=== PATIENT | female | born 1960 | race African-American/Black ===

== ENCOUNTER 2020-02-01 10:57 | Outpatient (REF) | payer OTHER, SELFPAY | END 2020-02-01 10:58 | disposition home or self-care (01) | LOC: HO.LAB 10:57 | PROVIDERS: Visit Provider Internal Medicine | DX: Z20.828 Contact with and (suspected) exposure to other viral communicable diseases (principal) | CPT/HCPCS: C9803; U0003 ==

== ENCOUNTER 2023-03-26 07:57 | Outpatient (REF) | payer OTHER, SELFPAY | END 2023-03-26 07:58 | disposition home or self-care (01) | LOC: HO.MAMMO 07:57 | PROVIDERS: PCP Internal Medicine; Visit Provider Internal Medicine | DX: Z12.31 Encounter for screening mammogram for malignant neoplasm of breast (principal) | CPT/HCPCS: 77063; 77067 ==

== ENCOUNTER → 2023-03-26 08:15 | Outpatient (BNV) | payer OTHER, SELFPAY | PROVIDERS: PCP Internal Medicine; Visit Provider Radiology Diagnostic Radiology | DX: Z12.31 Encounter for screening mammogram for malignant neoplasm of breast (principal) | CPT/HCPCS: 77063; 77067 ==

== ENCOUNTER 2023-10-02 08:41 | Outpatient (REF) | payer OTHER, SELFPAY ==
[2023-10-02 13:53] LABS: MANUAL DIFF FLAG NO
[2023-10-02 14:03] LABS: Basophils Percent Auto 0.7 % (0-2); Hematocrit 39.6 % (37.0-47.0); Hemoglobin 13.4 g/dl (12.0-16.0); Imm Gran Abs Auto 0.01 X10*3/uL (0.00-0.03); Imm Gran Pct Auto 0.2 % (0.0-0.4); Lymphocytes Absolute Auto 1.7 X10*3/uL (1.2-4.9); Lymphocytes Percent Auto 41.4 % (20-40); Mean Corpuscular HGB Conc 33.8 g/dl (31.0-35.0); Mean Corpuscular Hemoglobin 28.4 pg (27.0-33.0); Mean Corpuscular Volume 83.9 fL (80.0-98.0); Mean Platelet Volume 10.4 fL (9.4-12.3); Monocytes Absolute Auto 0.3 X10*3/uL (0.1-1.2); Monocytes Percent Auto 8.5 % (2-11); Neutrophils Absolute Auto 1.9 x10*3/uL (2.0-8.3); Neutrophils Percent Auto 48.2 % (45-73); Platelet Count 160 X10*3/uL (160-400); Red Blood Count 4.72 X10*6/uL (4.20-5.50); Red Cell Distribution Width 13.1 % (11.0-16.0)
[2023-10-02 14:24] LABS: Alanine Aminotransferase 25 U/L (0-31); Albumin Level 4.6 g/dL (3.5-5.0); Alkaline Phosphatase 44 U/L (39-117); Anion Gap 14 (12-20); Aspartate Amino Transferase 26 U/L (5-31); Bilirubin Total 0.4 mg/dL (0.0-1.0); Blood Urea Nitrogen 14 mg/dL (9-16); Calcium 9.9 mg/dL (8.4-10.2); Carbon Dioxide 30 mmol/L (22-29); Chloride 101 mmol/L (96-108); Cholesterol 242 mg/dL (<200); Estimated Glomerular Filt Rate > 60; Glucose Random 84 mg/dL (60-115); HDL Cholesterol 50 mg/dL (>40); LDL Cholesterol Calculated 138 mg/dL (<100); Potassium 4.2 mmol/L (3.3-5.1); Sodium 141 mmol/L (135-145); Total Protein 7.1 g/dL (6.5-8.0); Triglycerides 273 mg/dL (<150)
[2023-10-02 14:47] LABS: TSH reflex Free T4 1.06 uIU/mL (0.32-4.0)
== END 2023-10-02 08:42 | disposition home or self-care (01) ==
LOC: HO.CHCLDS 08:41
PROVIDERS: Visit Provider Internal Medicine
DX: G43.109 Migraine with aura, not intractable, without status migrainosus (principal); N39.3 Stress incontinence (female) (male); E78.00 Pure hypercholesterolemia, unspecified
CPT/HCPCS: 36415; 80053; 80061; 84443; 85025

== ENCOUNTER 2024-01-19 16:22 | Outpatient (REF) | payer OTHER, SELFPAY ==
--- NOTE | ~2024-01-19 | MR_ITS ---
EXAMINATION: MR BRAIN WITHOUT CONTRAST CLINICAL INFORMATION: Headaches. COMPARISON: None available. TECHNIQUE: MRI of the brain was obtained using routine sequences without contrast. FINDINGS: No focal restricted diffusion is demonstrated to suggest acute or subacute cerebral ischemia. No evidence of acute or chronic hemorrhagic products on heme-sensitive imaging. Few scattered nonspecific periventricular and deep white matter T2 FLAIR hyperintensities. The ventricles are normal in morphology and size. No abnormal mass effect. No midline shift. Normal appearance of the pituitary gland. Normal positioning of the cerebellar tonsils. Normal arterial and venous vascular flow voids are present. Normal, homogeneous marrow signal. Moderate degenerative spondyloarthropathy of the visualized upper cervical spine. Mild mucosal thickening of the paranasal sinuses. No signal abnormalities within the mastoids. Bilateral lens extractions. MR/MR head/brain wo con IMPRESSION: 1. No acute intracranial abnormalities. 2. Minimal nonspecific white matter changes. Electronically signed by: Rafa Currie DO 02/10/2024 07:32 AM SAAD
== END 2024-01-19 16:23 | disposition home or self-care (01) ==
LOC: HO.MRI 16:22
PROVIDERS: PCP Internal Medicine; Visit Provider Internal Medicine
DX: G43.719 Chronic migraine without aura, intractable, without status migrainosus (principal)
CPT/HCPCS: 70551

== ENCOUNTER 2024-03-29 10:23 | Outpatient (REF) | payer OTHER, SELFPAY ==
--- OUTSIDE RECORDS SUMMARY | 2024-03-29 11:18 | XMS_ITS | Clinical Summary ---
Author Organization [employer] Address [address] [facility] 7t [place] [address] Care Team Providers Care Pilot Plant Operator Helper Name Role Phone Estee Wright MD Primary Care Provider [phone] Allergies No known active allergies Medications SUMAtriptan (Imitrex) 25 MG tabletIndication s:Migraine with aura and without status migrainosus, not intractable TAKE ONE TABLET BY MOUTH NEEDED FOR MIGRAINE. NO MORE THAN EIGHT TABLETS PER 24 HOURS 9 tablet 2 10/01/2023 Active atorvastatin (Lipitor) 20 MG tabletIndication s:Hypercholester olemia Take 1 tablet (20 mg) by mouth Once per day. 30 tablet 11 10/05/2023 10/05/19 25 Active topiramate (Topamax) 50 MG tablet Take 50 mg by mouth Once per day. 30 tablet 12/22/2023 Active Active Problems Problem Noted Date Diagnosed Date Migraine 10/01/2023 Positive PPD 10/01/2023 Hypercholesterolemia 08/22/2021 Encounters Date Type Department Care Team Description 02/15/2024 Telephone [facility] [address] [place] [address] Estee Wright MD Results from Last 3 Months Social History Tobacco Use Types Packs/Day Years Used Date Smoking Tobacco: Never Smokeless Tobacco: Never Tobacco Cessation:Counseling Given: Not Answered Alcohol Use Standard Drinks/Week Comments Not Currently 0 (1 standard drink = 0.6 oz pur e alcohol) Depression Answer Date Recorded Patient Health Questionnaire-9 Score 0 10/01/2023 Patient Health Questionnaire-9 Score 0 10/01/2023 Last PHQ-9: Questionnaire Data Not on file 0 10/01/2023 Housing Stability Answer Date Recorded What is your housing situation today? I have antione vizcarra 10/01/[address] you li ve. Do you have problems with any of the following? None of the above 10/01/2023 Food Insecurity Answer Date Recorded Within the past 12 months, y ou worried that your food would run out before you got money to buy more: Never True 10/01/2023 Within the past 12 months,th e food you bought just didn't last and you didn't have enough money to get more: Never True 03/2023 Transportation Answer Date Recorded In the past 12 months, has l ack of transportation kept you from medical appts, meetings, work or from getting things needed for daily living? No 10/01/2023 Utilities Answer Date Recorded In the past 12 months, has t he electric, gas, oil or water company threatened to shut off services in your home? No 10/01/2023 Depression Answer Date Recorded Patient Health Questionnaire-2 Score 0 10/01/2023 Internet Access Answer Date Recorded Internet Access Q1 Yes 11/02/2023 Internet Access Q2 Not on file 11/02/2023 Comments No Sex and Gender Information Value Date Recorded Sex Assigned at Female 12/30/2021 10:20 AM EDT Legal Sex Female 10:20 AM EDT Gender Identity Female 12/30/2021 10:20 AM EDT Sexual Orientation Choose not to disclose 2021 10:20 AM EDT Last Filed Vital Signs Vital Sign Reading Time Taken Comments Blood Pressure 142/90 12/22/2023 11:32 AM EDT Pulse 88 12/22/2023 11:32 AM EDT Temperature 37.1 ??C (98.8 ??F) 12/22/2023 11:32 AM E DT Respiratory Rate 20 12/22/2023 11:32 AM EDT Oxygen Saturation 98% 10/01/2023 1:43 PM EDT Inhaled Oxygen Concentration - - Weight 94.3 kg (208 lb) 12/22/2023 11:32 AM EDT Height 167.6 cm (5' 6 ) 12/22/2023 11:32 AM EDT Body Mass Index 33.57 12/22/2023 11:32 AM EDT Plan of Treatment Health Maintenance Due Date Last Done Comments CT Colonography 1959 FIT DNA/Cologuard 1959 FIT 1960 FOBT 1960 HIV Screening 1960 Sigmoidoscopy 1960 Alcohol/Substance Use Screening 1971 RSV Patients and Patients Aged 60 years or older (1 - Risk 60-74 years 1-dose series) 2019 COVID-19 Vaccine (4 - 2023-2 5 season) 2023 04/04/2021, 05/03/2020, 04/12/2020 Influenza Vaccine (#1) 2023 , 12/31/2018, 01/14/2014 Pap Smear 09/17/2024 09/17/2021 Depression Screening 09/30/2024 10/01/2023, 10/01/2023 SDOH Screening 09/30/2024 10/01/2023 Tobacco Screening 12/21/2024 12/22/2023 Mammogram 03/26/2025 03/26/2023 Cervical Cancer Screening 09/17/2026 HPV/Cotest 09/17/2026 09/17/2021 Colonoscopy 12/16/2027 12/15/2017 Colorectal Cancer Screening 12/16/2027 Lipid Panel 10/01/2028 10/02/2023, 08/21/2021, 02/13/2020 DTaP/Tdap/Td Vaccines (4 - T d or Tdap) 12/31/2028 12/31/2018, 10/20/2017, 09/17/2012 Zoster Vaccines Completed 04/20/2019, 02/15/2019 Hepatitis C Screening Completed 08/21/2021 HIB Vaccines Aged Out No longer eligi ble based on patient's age to complete this topic HPV Vaccines Aged Out No longer eligi ble based on patient's age to complete this topic Hepatitis A Vaccines Aged Out No long er eligible based on patient's age to complete this topic Hepatitis B Vaccines Aged Out No long er eligible based on patient's age to complete this topic IPV Vaccines Aged Out No longer eligi ble based on patient's age to complete this topic Meningococcal Vaccine Aged Out No regis rod eligible based on patient's age to complete this topic Pneumococcal Vaccine: Pediatrics (0 to 5 Years) and At-Risk Patients (6 to 64 Years) Aged Out No longer eligible b ased on patient's age to complete this topic RSV under 20 months Aged Out No longe r eligible based on patient's age to complete this topic Rotavirus Vaccines Aged Out No longer eligible based on patient's age to complete this topic Procedures Procedure Name Priority Date/Time Associated Diagnosis Comments MR BRAIN WO CONTRAST Routine 01/19/2024 4:45 PM EST Intractable chronic migraine without aura and without status migrainosus LIPID PANEL, STANDARD Routine 10/02/2023 8:43 AM EDT Hypercholesterolemi a BI MAMMOGRAM SCREENING TOMOSYNTHESIS BILATERAL Routine 03/26/2023 8:30 AM EST THINPREP IMAGING PAP AND HPV MRNA E6/E7 WITH REFLEX TO HPV 16,18/45 Routine 09/17/2021 10:12 AM EDT ZZZ HISTORICAL HEPATITIS C AB W/REFL TO HCV RNA, QN, PCR Routine 08/21/2021 8:46 AM EDT HM COLONOSCOPY Routine 12/15/2017 from Last 3 Months or Most Recently Relevant to Health Maintenance Results * MR Brain w/o Contrast (01/19/2024 4:45 PM EST) Anatomical Region Laterality Modality Brain Magnetic Resonan ce 01/19/2024 4:45 PM EST Narrative 02/10/2024 7:34 AM EST ? [facility] ?[address] ?[place] [address] ? Magnetic Resonance Report ? Signed ? Patient: Lopez,Kamryn P ?MR#: [id number] ?? [id number] ? : 1960 ?Acct:[id number] ? Age/Sex: 63 / F ?ADM Date: 11/19/24 ? Loc: HO.MRI ? Attending Dr: Anatoly Jim MD ? Ordering Physician: Anatoly Hidalgo MD ?? Date of Service: 01/19/24 ?? Procedure(s): MR head/brain wo con ?? Accession Number(s): [id number] ? cc: Estee Wright MD; Anatoly Hidalgo MD ? EXAMINATION: ?? MR BRAIN WITHOUT CONTRAST ? CLINICAL INFORMATION: ?? Headaches. ? COMPARISON: ?? None available. ? TECHNIQUE: ?? MRI of the brain was obtained using routine sequences without contrast. ? FINDINGS: ?? No focal restricted diffusion is demonstrated to suggest acute or ?? subacute cerebral ischemia. No evidence of acute or chronic hemorrhagic ?? products on heme-sensitive imaging. Few scattered nonspecific ?? periventricular and deep white matter T2 FLAIR hyperintensities. The ?? ventricles are normal in morphology and size. No abnormal mass effect. ?? No midline shift. ? Normal appearance of the pituitary gland. Normal positioning of the ?? cerebellar tonsils. Normal arterial and venous vascular flow voids are ?? present. ? Normal, homogeneous marrow signal. Moderate degenerative ?? spondyloarthropathy of the visualized upper cervical spine. Mild ?? mucosal thickening of the paranasal sinuses. No signal abnormalities ?? within the mastoids. Bilateral lens extractions. ? MR/MR head/brain wo con ?? IMPRESSION: ?? 1. ??No acute intracranial abnormalities. ?? 2. ??Minimal nonspecific white matter changes. ? Electronically signed by: ??Rafa Currie DO ??02/10/2024 07:32 AM EST RP ? Dictated By: ?Ephraim Currie DO ? Signed By: ?<Electronically signed by Ephraim Currie DO in OV> ? 02/10/24 0732 ? DD/ 1645 ? TD/TT: 01/19/24 1705 ? Roustabout Supervisor: WESTLEY ? Procedure Note Janki Aleman - 02/10/[address] [address] Magnetic Resonance Report Signed Patient: Kamryn Lopez PMR#: [id number] : 1960Acct:[id number] Age/Sex: 63 / FADM Date: 01/19/24 Loc: HO.MRI Attending Dr: Anatoly Jim MD Ordering Physician: Anatoly Hidalgo MD Date of Service: 01/19/24 Procedure(s): MR head/brain wo con Accession Number(s): [id number] cc: Estee Wright MD; Anatoly Hidalgo MD EXAMINATION: MR BRAIN WITHOUT CONTRAST CLINICAL INFORMATION: Headaches. COMPARISON: None available. TECHNIQUE: MRI of the brain was obtained using routine sequences without contrast. FINDINGS: No focal restricted diffusion is demonstrated to suggest acute or subacute cerebral ischemia. No evidence of acute or chronic hemorrhagic products on heme-sensitive imaging. Few scattered nonspecific periventricular and deep white matter T2 FLAIR hyperintensities. The ventricles are normal in morphology and size. No abnormal mass effect. No midline shift. Normal appearance of the pituitary gland. Normal positioning of the cerebellar tonsils. Normal arterial and venous vascular flow voids are present. Normal, homogeneous marrow signal. Moderate degenerative spondyloarthropathy of the visualized upper cervical spine. Mild mucosal thickening of the paranasal sinuses. No signal abnormalities within the mastoids. Bilateral lens extractions. MR/MR head/brain wo con IMPRESSION: 1. No acute intracranial abnormalities. 2. Minimal nonspecific white matter changes. Electronically signed by: Rafa Currie DO 02/10/2024 07:32 AM EST Dictated By: Ephraim Currie DO Signed By: <Electronically signed by Ephraim Currie DO in OV> 02/10/24 0732 DD/ 1645 TD/TT: 01/19/24 1705 Roustabout Supervisor: WESTLEY Anatoly Jim MD IM MRI PROCEDURES Edited Result - Final * (ABNORMAL) Lipid Panel, Standard (10/02/2023 8:43 AM EDT) Triglycerides 273(H) <150 mg/dL [facility] Comment:Desirable Triglyceri de: less than 150 mg/dLBorderline High Triglyceride 150-199 mg/dLHigh Triglyceride: 200-499 mg/dLVery High Triglyceride: greater than or equal to 5OO mg/dL Cholesterol 242(H) <200 mg/dL [facility] Comment:Desirable Cholestero l: less than 200 mg/dLBorderline High Cholesterol: 200-239 mg/dLHigh Cholesterol: greater than 239 mg/dL LDL Cholesterol Calculated 138(H) <100 mg/dL [facility] Comment:Desirable LDL: less than 100 mg/dLNear Optimal/Above Optimal LDL: 110- 129 mg/dLBorderline High LDL: 130-159 mg/dLHigh LDL: 160-189 mg/dLVery High LDL: greater than or equal to 190 mg/dL HDL Cholesterol 50 >40 mg/dL [facility] Comment:Desirable HDL: great er than 40 mg/dL Note: This HDL assay may give artificially low results in patients with liver disease. Blood Venous blood specimen / Unknown 10/02/2023 8:43 AM EDT 10/02/2023 1:49 PM EDT us Estee Wright MD LAB BLOOD ORDERABLES Final Result [facility] [address] [place] [address] [phone] * BI Mammogram Screening Tomosynthesis Bilateral (03/26/2023 8:30 AM EST) Anatomical Region Laterality Modality Breast Bilateral Mammography 03/26/2023 8:30 AM EST Narrative 04/07/2023 5:23 AM EST ? [facility] [place] ? [address] ?[place] [address] ? Mammography Report ? Signed ? Patient: Kamryn Lopez ?MR#: [id number] ?? [id number] ? : 1960 ?Acct:[id number] ? Age/Sex: 62 / F ?ADM Date: 01/25/24 ? Loc: HO.MAMMO ? Attending Dr: Estee Wright MD ? Ordering Physician: Estee Wright MD ?Results: 1 ?? Negative ? Date of Service: 03/26/23 ?Follow Up: 1 Year From Orig ?? inal Mammogram ? Procedure(s): MM tomosynthesis screening BI ?? Accession Number(s): [id number] ? cc: Estee Wright MD ? EXAMINATION: ?? MM SCREENING DIGITAL BREAST TOMOSYNTHESIS, BILATERAL ? CLINICAL INFORMATION: ? Screening. Asymptomatic. ? COMPARISON: ?? Mammography: This study is compared with prior exams dating back to ?? 2019. ? TECHNIQUE: ?? Digital breast tomosynthesis is performed in both the craniocaudal and ?? mediolateral oblique views along with computer-aided detection (CAD). ?? Synthesized 2D images are generated from the tomosynthesis. ? FINDINGS: ?? There are scattered areas of fibroglandular density (ACR BI-RADS breast ?? composition Category b). ? There are no significant masses, abnormal calcifications, or other ?? abnormalities. ? MM/MM tomosynthesis screening BI ?? IMPRESSION: ?? No mammographic evidence of malignancy. ? ASSESSMENT: ? BI-RADS BI-RADS 1 - Negative ? RECOMMENDATION: ?? Routine annual mammography screening. ? 1 year F/U ? This examination should not preclude the clinical evaluation of a ?? suspicious palpable abnormality. ? This patient's information was entered into a reminder system with a ?? target due date for their next mammogram. ? Dictated By: ?Amira Rios MD ? Signed By: ?<Electronically signed by Amira Rios MD in OV> ? 04/07/23519 ? DD/ 9 ? TD/TT: ? Roustabout Supervisor: ? Procedure Note Janki Aleman - 04/07/2023 [facility] [address] [place] [address] Dr. Nickerson, [place] [address] Mammography Report Signed Patient: Kamryn Lopez PMR#: [id number] : 1960Acct:[id number] Age/Sex: 62 / FADM Date: 03/26/23 Loc: HO.MAMMO Attending Dr: Estee Wright MD Ordering Physician: Estee Wright MDResults: 1 Negative Date of Service: 03/26/23Follow Up: 1 Year From Orig inal Mammogram Procedure(s): MM tomosynthesis screening BI Accession Number(s): [id number] cc: Estee Wright MD EXAMINATION: MM SCREENING DIGITAL BREAST TOMOSYNTHESIS, BILATERAL CLINICAL INFORMATION: Screening. Asymptomatic. COMPARISON: Mammography: This study is compared with prior exams dating back to 2019. TECHNIQUE: Digital breast tomosynthesis is performed in both the craniocaudal and mediolateral oblique views along with computer-aided detection (CAD). Synthesized 2D images are generated from the tomosynthesis. FINDINGS: There are scattered areas of fibroglandular density (ACR BI-RADS breast composition Category b). There are no significant masses, abnormal calcifications, or other abnormalities. MM/MM tomosynthesis screening BI IMPRESSION: No mammographic evidence of malignancy. ASSESSMENT: BI-RADS BI-RADS 1 - Negative RECOMMENDATION: Routine annual mammography screening. 1 year F/U This examination should not preclude the clinical evaluation of a suspicious palpable abnormality. This patient's information was entered into a reminder system with a target due date for their next mammogram. Dictated By: Amira Rios MD Signed By: <Electronically signed by Amira Rios MD in OV> 04/07/23 0520 DD/ 0830 TD/TT: Roustabout Supervisor: Estee Wright MD IMG BI PROCEDURES Edited Re sult - Final * THINPREP TIS PAP AND HPV mRNA E6/E7 WITH REFLEX TO HPV 16,18/45 (09/17/2021 10:12 AM EDT) Clinical Information: None given [facility] COMMENT SEE COMMENT [facility] Comment: EXPLANATORY NOTE: ? The Pap is a screening test for cervical cancer. It is ?? not a diagnostic test and is subject to false negative ?? and false positive results. It is most reliable when a ?? satisfactory sample, regularly obtained, is submitted ?? with relevant clinical findings and history, and when ?? the Pap result is evaluated along with historic and ?? current clinical information. ?? COMMENT: This Pap test has been evaluated with computer assisted technology. [facility] Cytotechnologis t: SEE COMMENT [facility] Comment: CXP, CT(ASCP) CT screening location: [address] ??[address] HPV nRNA E6/E7 Not Detected Not Detected [facility] Comment: Methodology: Observer Helper-Mediated Amplification This assay detects E6/E7 viral messenger RNA (mRNA) from 14 high-risk HPV types (16,18,31,33,35,39,45,51,52,56,58,59,66,68). ? Cervical sources are required for HPV testing. If a vaginal source from a patient who has had a total hysterectomy with removal of cervix was ?? submitted, please contact the testing laboratory for alternative testing options. ?? For additional information, please refer to http://education.[employer]/faq/QIY025v5 (This link if provided for information/ educational purposes only.) Interpretation/ Result: Negative for intraepithelial lesion or malignancy. [facility] LMP: MP@51 [facility] Prev. BX: NONE [facility]IVEN [facility] Prev. PAP: NONE [facility]IV[facility] SOURCE: None given [facility] Statement Of Adequacy: SEE COMMENT [facility] Comment: Satisfactory for evaluation. Endocervical/transformation zone component absent. 09/17/2021 10:1 2 AM EDT Melody Block CNM LAB PATHOLOGY ORDERABLES Final Result [facility] [address] [place] [address], * HEPATITIS C AB W/REFL TO HCV RNA, QN, PCR (08/21/2021 8:46 AM EDT) Pathologist [facility] HEPATITIS C ANTIBODY NON-REACT XIN NON-REACT XIN [facility] INDEX 0.02 <1.00 [facility] Comment: ?? HCV antibody was non-reactive. There is no laboratory ?? evidence of HCV infection. ?? In most cases, no further action is required. However, if recent HCV exposure is suspected, a test for HCV RNA (test code 77093) is suggested. ?? For additional information please refer to http://education.[employer]/faq/RHO93z7 (This link is being provided for informational/ educational purposes only.) ?? 08/21/2021 8:46 AM EDT Estee Wright MD HISTORICAL/NON ORDERABLE LA BS Final Result [facility] [place] [address], * Colonoscopy (12/15/2017) [facility] Colonoscopy Normal Normal Narrative Lisa Cervantes - 12/15/2017 Recommended 10 year follow up Historical Provider HEALTH MAINTENANCE Final Result from Last 3 Months or Most Recently Relevant to Health Maintenance Insurance [facility] Care Teams Pilot Plant Operator Helper Relationship Specialty Start Date End Date Estee Wright MD [address] [place] [address] PCP - General Internal Medicine 05/26/18
--- OUTSIDE RECORDS SUMMARY | 2024-03-29 11:18 | XMS_ITS | Encounter Summary ---
Author Organization [employer] Address [address] [place] [address] [place], [place] [address] Care Team Providers Care Extractor Filler Name Role Phone Estee Wright MD Primary Care Provider [phone] Reason for Referral * Imaging (Routine) - Closed Specialty Diagnoses / Procedures Referred By Dar cain Referred To Contact Radiology Diagnoses Encounter for screening mammogram for malignant neoplasm of breast Procedures BI Mammogram Screening Bilateral Estee Wright MD [address] [place] [address] Phone: tel: fax: [address] Phone: tel: fax: Referral ID Status Reason Start Date Expiration Date Visits Re quested Visits Authorized [id number] Closed 02/18/2023 02/18/2024 1 1 Reason for Visit * Reason Onset Date Comments Referral 02/17/2023 Encounter Details Date Type Department Care Team ([facility] st Contact Info) Description 02/17/2023 Telephone [facility] [address] [place], [place] [phone] Estee Wright MD [address] [place] [address] Referral Social History Tobacco Use Types Packs/Day Years Used Date Smoking Tobacco: Never Smokeless Tobacco: Never Alcohol Use Standard Drinks/Week Comments Not Currently 0 (1 standard drink = 0.6 oz pur e alcohol) Comments Unknown Sex and Gender Information Value Date Recorded Sex Assigned at Female 12/30/2021 10:20 AM EDT Legal Sex Female 10:20 AM EDT Gender Identity Female 12/30/2021 10:20 AM EDT Sexual Orientation Choose not to disclose 2021 10:20 AM EDT documented as of this encounter Miscellaneous Notes * Telephone Encounter - Fanny Roca RN - 02/18/2023 11:34 AM EST Returned call to pt regarding message below. [facility] [place] they do not [place] pt's insurance anymore. Pt requesting new order to a different location that does take pt insurance. Placed call to [facility] and confirmed they do take pt insurance. Please add order for routine mammo to be sent to [facility]. Thank you. * Telephone Encounter - Lorena Latham - 02/17/2023 12:55 PM EST Tc from pt requesting a referral for a Mammogram, pt states that she gets one done every year but current facility no longer takes her insurance and is requesting to be referred out somewhere that does. Please contact pt [phone] documented in this encounter Plan of Treatment Scheduled Orders Name Type Priority Associated Diagnoses Orde r Schedule BI Mammogram Screening Bilateral Imaging Routine Encounter for screening mammogram for malignant neoplasm of breast Expected: 02/18/2023, Expires: 04/21/2024 documented as of this encounter Visit Diagnoses Diagnosis Encounter for screening mammogram for malignant neoplasm of breast- Primary documented in this encounter Care Teams Extractor Filler Relationship Specialty Start Date End Date Estee Wright MD [address] [place] [address] PCP - General Internal Medicine 05/26/18 documented as of this encounter
--- OUTSIDE RECORDS SUMMARY | 2024-03-29 11:18 | XMS_ITS | Encounter Summary ---
Author Organization [employer] Address [address] [facility] [address] [place] [address] Care Team Providers Care Director Export Name Role Phone Estee Wright MD Primary Care Provider [phone] Encounter Details Date Type Department Care Team (Late st Contact Info) Description 08/18/2023 Orders Only [facility]S [address] [place] [address] Estee Wright MD [address] [place] [address] Migraine with aura and without status migrainosus, not intractable (Primary Dx) Social History Tobacco Use Types Packs/Day Years [...] AM EDT documented as of this encounter Plan of Treatment Not on file documented as of this encounter Visit Diagnoses Diagnosis Migraine with aura and without status migrainosus, not intractable- Primary documented in this encounter Care Teams Director Export Relationship Specialty Start Date End Date Estee Wright MD [address] [place] [address] PCP - General Internal Medicine 05/26/18 documented as of this encounter
--- OUTSIDE RECORDS SUMMARY | 2024-03-29 11:18 | XMS_ITS | Encounter Summary ---
Author Organization [employer] Address 75 [facility] 7 [place] [address] Care Team Providers Care Evp Managing Director Name Role Phone Estee Wright MD Primary Care Provider [phone] Encounter Details Date Type Department Care Team (Late st Contact Info) Description 01/01/2023 Abstract [facility] MEDICINE [address] [place] [address] Lisa Cervantes Social History Tobacco Use Types Packs/Day Years [...] on file documented as of this encounter Procedures Procedure Name Priority Date/Time Associated Diagnosis Comments COLONOSCOPY Routine 12/15/2017 documented in this encounter Results * Colonoscopy (12/15/2017) Colonoscopy Normal Normal Narrative Lisa Cervantes - 12/15/2017 Recommended 10 year follow up us Historical Provider HEALTH MAINTENANCE Final Result documented in this encounter Visit Diagnoses Not on filedocumented in this encounter Care Teams Evp Managing Director Relationship Specialty Start Date End Date Estee Wright MD [address] [place], [place] [id number] PCP - General Internal Medicine 05/26/18 documented as of this encounter
--- OUTSIDE RECORDS SUMMARY | 2024-03-29 11:18 | XMS_ITS | Encounter Summary ---
Author Organization [email or web address] Address [address] [place] [address] 7 [place] [address] Care Team Providers Care Distribution Operations Supervisor Name Role Phone Estee Wright MD Primary Care Provider [phone] Encounter Details Date Type Department Care Team (Latest Contact Info) Description 07/15/2018 Abstract [facility] CONVERSIONS Dental, Provider, DDS Social History Tobacco Use Types Packs/Day Years Used Date Smoking Tobacco: Never Assessed Comments Unknown Sex and Gender Information Value Date Recorded Sex Assigned at Female 12/30/2021 10:20 AM EDT Legal Sex Female 10:20 AM EDT Gender Identity Female 12/30/2021 10:20 AM EDT Sexual Orientation Choose not to disclose 2021 10:20 AM EDT documented as of this encounter Plan of Treatment Not on file documented as of this encounter Visit Diagnoses Not on filedocumented in this encounter Care Teams Distribution Operations Supervisor Relationship Specialty Start Date End Date Estee Wright MD [address] [place] [address] PCP - General Internal Medicine 05/26/18 documented as of this encounter
--- OUTSIDE RECORDS SUMMARY | 2024-03-29 11:18 | XMS_ITS | Encounter Summary ---
Author Organization [employer] Address 75 [facility] 7t [place] [address] Care Team Providers Care Trimmer Sawyer Name Role Phone Estee Wright MD Primary Care Provider [phone] Encounter Details Date Type Department Care Team (Latest Contact Info) Description 10/05/2023 Orders Only [facility] CHC MED & PEDS [address] [place] [address] Estee Wright MD [address] [place] [address] Hypercholesterolemia (Primary Dx) Social History Tobacco Use Types [...] Recorded Patient Health Questionnaire-2 Score 0 10/01/2023 Comments No Sex and Gender Information Value Date Recorded Sex Assigned at Female 12/30/2021 10:20 AM EDT Legal Sex Female 10:20 AM EDT Gender Identity Female 12/30/2021 10:20 AM EDT Sexual Orientation Choose not to disclose 2021 10:20 AM EDT documented as of this encounter Plan of Treatment Not on file documented as of this encounter Visit Diagnoses Diagnosis Hypercholesterolemia- Primary Pure hypercholesterolemia documented in this encounter Additional Health Concerns Assessment Noted Time PHQ-9 Depression Total Score: 0 10/01/19 24 10:07 AM EDT documented as of this encounter Care Teams Trimmer Sawyer Relationship Specialty Start Date End Date Estee Wright MD [address] [place] [id number] PCP - General Internal Medicine 05/26/18 documented as of this encounter
== END 2024-03-29 10:24 | disposition home or self-care (01) ==
LOC: HO.MAMMO 10:23
PROVIDERS: PCP Internal Medicine; Visit Provider Internal Medicine
DX: Z12.31 Encounter for screening mammogram for malignant neoplasm of breast (principal)
CPT/HCPCS: 77063; 77067

== ENCOUNTER → 2024-03-29 10:45 | Outpatient (BNV) | payer OTHER, SELFPAY | PROVIDERS: PCP Internal Medicine; Visit Provider Internal Medicine | DX: Z12.31 Encounter for screening mammogram for malignant neoplasm of breast (principal) | CPT/HCPCS: 77063; 77067 ==

== ENCOUNTER 2024-06-09 17:36 | Outpatient (REF) | payer SELFPAY ==
--- OUTSIDE RECORDS SUMMARY | 2024-06-09 18:16 | XMS_ITS | Encounter Summary ---
Author Organization [employer] Address 75 [facility] 7t [place] [address] Care Team Providers Care Panelbeater Name Role Phone Estee Wright MD Primary Care Provider [phone] Reason for Visit * Reason Comments Gynecologic Exam Encounter Details Date Type Department Care Team ([facility] st Contact Info) Description 06/09/2024 1:45 PM EDT Office Visit [facility] MED & PEDS [address] [place] [address] Melody Block CNM [address] [place] [address] Postcoital bleeding (Primary Dx); Family history of breast cancer Social History Tobacco Use Types Packs/Day Years [...] AM EDT documented as of this encounter Last Filed Vital Signs Vital Sign Reading Time Taken Comments Blood Pressure 142/93 06/09/2024 1:53 PM EDT Pulse 71 06/09/2024 1:53 PM EDT Temperature 36.8 ??C (98.3 ??F) 06/09/2024 1:53 PM ED T Respiratory Rate 20 06/09/2024 1:53 PM EDT Oxygen Saturation 98% 06/09/2024 1:53 PM EDT Inhaled Oxygen Concentration - - Weight 96.6 kg (213 lb) 06/09/2024 1:53 PM EDT Height 167.6 cm (5' 6 ) 06/09/2024 1:53 PM EDT Body Mass Index 34.38 06/09/2024 1:53 PM EDT documented in this encounter Progress Notes * Melody Block CNM - 06/09/2024 1:45 PM EDT Subjective Patient ID: Rubin Anne is a 64 y.o. female who presents for post coital bleeding Notes three episodes of pinkish bleeding after sex recently. 1 alf AMAB partner, no safety concerns. No pain/dryness with sex. No other vaginal/urinary/pelvic symptoms. Pap NIL/HPV neg 08/2021. Mammogram BIRADS 2, cat b 04/2024. Patient seen in conjunction with ALIYAH Collado student. I was present for and confirmed all pertinent elements in the history, exam, assessment of the patient, and the plan of care, and agree with all findings. Gynecologic Exam The patient's pertinent negatives include no pelvic pain or vaginal discharge. Pertinent negatives include no dysuria. Review of Systems Genitourinary: Positive for vaginal bleeding. Negative for dyspareunia, dysuria, pelvic pain and vaginal discharge. Objective BP (!) 142/93 (BP Location: Left arm, Patient Position: Sitting, BP Cuff Size: Large adult) Pulse71 Temp 98.3 ??F (36.8 ??C) (Oral) Resp 20 Ht 5' 6 (1.676 m) Wt 213 lb (96.6 kg) LMP (LMP Unknown) SpO2 98% BMI 34.38 kg/m?? Physical Exam Exam conducted with a credit front office developer present (Melody Block CNM). Constitutional: Appearance: Normal appearance. Genitourinary: General: Normal vulva. Labia: Right: No rash, tenderness, lesion or injury. Left: No rash, tenderness, lesion or injury. Vagina: Normal. No signs of injury and foreign body. No vaginal discharge, erythema, tenderness, bleeding or lesions. Cervix: Friability and cervical bleeding present. No cervical motion tenderness, discharge, lesion,erythema or eversion. Uterus: Normal. Not enlarged and not tender. Adnexa: Right adnexa normal and left adnexa normal. Right: No mass, tenderness or fullness. Left: No mass, tenderness or fullness. Neurological: Mental Status: She is alert. Psychiatric: Mood and Affect: Mood normal. Behavior: Behavior normal. Assessment/Plan Diagnoses and all orders for this visit: Postcoital bleeding - Pap Smear - STI testing add on (NG, CT, Trich) Friable cervix. Will send pap/STI and contact with results. No one from insurance enrollment on site today, but will be here in morning. Urged to come in the morning for insurance enrollment. Will order pelvic ultrasound after today's results if indicated. Seek care urgently if heavy bleeding/pelvic pain. Family history of breast cancer Mammogram UTD. Will offer genetics referral once insurance active. Report changes in breast exam. documented in this encounter Plan of Treatment Scheduled Orders Name Type Priority Associated Diagnoses Orde r Schedule Pap Smear Pathology and Cytology Routine Postcoital bleeding Ordered: 06/09/2024 STI testing add on (NG, CT, Trich) Pathology and Cytology Routine Postcoital bleeding Ordered: 06/09/2024 documented as of this encounter Visit Diagnoses Diagnosis Postcoital bleeding- Primary Family history of breast cancer Family history of malignant neoplasm of breast documented in this encounter Additional Health Concerns Assessment Noted Time PHQ-9 Depression Total Score: 0 10/01/19 24 10:07 AM EDT documented as of this encounter Care Teams Panelbeater Relationship Specialty Start Date End Date Estee Wright MD [address] [place] [address] PCP - General Internal Medicine 05/26/18 documented as of this encounter
--- OUTSIDE RECORDS SUMMARY | 2024-06-09 18:16 | XMS_ITS | Encounter Summary ---
Author Organization [employer] Address [address] [place] [address] [address], [place] [address] Care Team Providers Care Cotton Jammer Name Role Phone Estee Wright MD Primary Care Provider [phone] Reason for Referral * Imaging (Routine) - Closed Specialty Diagnoses / Procedures Referred By Dar cain Referred To Contact Radiology Diagnoses Encounter for screening mammogram for malignant neoplasm of breast Procedures BI Mammogram Screening Bilateral Estee Wright MD [address] [place] [address] Phone: tel: fax: [address] Phone: tel: fax: Referral ID Status Reason Start Date Expiration Date Visits Re quested Visits Authorized [id number] Closed 02/18/2023 02/18/2024 1 1 Reason for Visit * Reason Onset Date Comments Referral 02/17/2023 Encounter Details Date Type Department Care Team ([facility] st Contact Info) Description 02/17/2023 Telephone [facility] CHC MED & PEDS [address] [place], [place] [phone] Estee Wright MD [address] [place], [place] [phone] Referral Social History Tobacco Use Types Packs/Day [...] message below. Pt states [facility] [place] they do not take pt's insurance anymore. Pt requesting new order to a different location that does take pt insurance. Placed call to [facility] women's center and confirmed they do take pt insurance. Please add order for routine mammo to be sent to [facility]. Thank you. * Telephone Encounter - Lorena Latham - 02/17/2023 12:55 PM EST Tc from pt requesting a referral for a Mammogram, pt states that she gets one done every year but current facility no longer takes her insurance and is requesting to be referred out somewhere that does. Please contact pt [phone] documented in this encounter Plan of Treatment Scheduled Orders Name Type Priority Associated Diagnoses Orde r Schedule BI Mammogram Screening Bilateral Imaging Routine Encounter for screening mammogram for malignant neoplasm of breast Expected: 02/18/2023, Expires: 04/21/2024 documented as of this encounter Visit Diagnoses Diagnosis Encounter for screening mammogram for malignant neoplasm of breast- Primary documented in this encounter Care Teams Cotton Jammer Relationship Specialty Start Date End Date Estee Wright MD [address] [place] [address] PCP - General Internal Medicine 05/26/18 documented as of this encounter
--- OUTSIDE RECORDS SUMMARY | 2024-06-09 18:16 | XMS_ITS | Encounter Summary ---
Author Organization [employer] Address 75 [facility] 7t [place] [address] Care Team Providers Care Manager Energy Name Role Phone Estee Wright MD Primary Care Provider [phone] Encounter Details Date Type Department Care Team (Latest Contact Info) Description 06/09/2024 Travel Social History Tobacco Use Types Packs/Day Years [...] Diagnoses Not on filedocumented in this encounter Additional Health Concerns Assessment Noted Time PHQ-9 Depression Total Score: 0 10/01/19 24 10:07 AM EDT documented as of this encounter Care Teams Manager Energy Relationship Specialty Start Date End Date Estee Wright MD [address] [place] [address] PCP - General Internal Medicine 05/26/18 documented as of this encounter
--- OUTSIDE RECORDS SUMMARY | 2024-06-09 18:16 | XMS_ITS | Encounter Summary ---
Author Organization [employer] Address [address] [facility] 7 [place] [address] Care Team Providers Care Commercial Assistant Name Role Phone Estee Wright MD Primary Care Provider [phone] Encounter Details Date Type Department Care Team (Late st Contact Info) Description 08/18/2023 Orders Only [facility] CHC MED & PEDS [address] [place] [address] Estee Wright MD [address] [place] [address] Migraine with aura and without status migrainosus, [...] Primary documented in this encounter Care Teams Commercial Assistant Relationship Specialty Start Date End Date Estee Wright MD [address] [place] [address] PCP - General Internal Medicine 05/26/18 documented as of this encounter
--- OUTSIDE RECORDS SUMMARY | 2024-06-09 18:16 | XMS_ITS | Encounter Summary ---
Author Organization [employer] Address [address] [place] [address] 7 [place] [address] Care Team Providers Care Brass Bobbin Winder Name Role Phone Estee Wright MD Primary Care Provider [phone] Encounter Details Date Type Department Care Team (Latest Contact Info) Description 07/15/2018 Abstract [facility] CONVERSIONS Dental, Provider, DDS Social History [...] on filedocumented in this encounter Care Teams Brass Bobbin Winder Relationship Specialty Start Date End Date Estee Wright MD [address] [place] [address] PCP - General Internal Medicine 05/26/18 documented as of this encounter
--- OUTSIDE RECORDS SUMMARY | 2024-06-09 18:16 | XMS_ITS | Encounter Summary ---
Author Organization [employer] Address [address] [facility] 7 [place] [address] Care Team Providers Care Manager Architectural Name Role Phone Estee Wright MD Primary Care Provider [phone] Reason for Visit * Reason Onset Date Comments Results 04/21/2024 Encounter Details Date Type Department Care Team ([facility] Contact Info) Description 04/21/2024 Telephone [facility] MEDICINE [address] [place] [address] Estee Wright MD [address] [place] [address] Results Social History Tobacco Use Types Packs/Day Years [...] encounter Miscellaneous Notes * Telephone Encounter - Wing Juanita RN - 04/22/2024 9:35 AM EST Tc to pt to relay PCP reviewing mammogram results. Pt is requesting follow-up appt with Mckayla for abdominal issues. Pt did not want to elaborate further. Stated to pt [place] would call back. Pt verbalized understanding and agreement with plan. * Telephone Encounter - Bret Bailon - 04/21/2024 9:11 AM EST TC from pt requesting call back regarding Results. Type of results: Mammogram Date when done: Around 03/29/24 Facility: [facility] Contact pt at [phone] documented in this encounter Plan of Treatment Not on file documented as of this encounter Visit Diagnoses Not on filedocumented in this encounter Additional Health Concerns Assessment Noted Time PHQ-9 Depression Total Score: 0 10/01/19 24 10:07 AM EDT documented as of this encounter Care Teams Manager Architectural Relationship Specialty Start Date End Date Estee Wright MD [address] [place] [address] PCP - General Internal Medicine 05/26/18 documented as of this encounter
--- OUTSIDE RECORDS SUMMARY | 2024-06-09 18:16 | XMS_ITS | Encounter Summary ---
Author Organization [employer] Address [address] [facility] 7t [place] [address] Care Team Providers Care Bunk Assembler Name Role Phone Estee Wright MD Primary Care Provider [phone] Encounter Details Date Type Department Care Team (Latest Contact Info) Description 10/05/2023 Orders Only [facility] CHC MED & PEDS [address] [place] [address] Estee Wright MD [address] [place] [address] Hypercholesterolemia (Primary Dx) Social History Tobacco Use [...] documented as of this encounter Care Teams Bunk Assembler Relationship Specialty Start Date End Date Estee Wright MD [address] [place] [address] PCP - General Internal Medicine 05/26/18 documented as of this encounter
--- OUTSIDE RECORDS SUMMARY | 2024-06-09 18:16 | XMS_ITS | Encounter Summary ---
Author Organization [employer] Address [address] [facility] 7 [place] [address] Care Team Providers Care Magazine Filler Name Role Phone Estee Wright MD Primary Care Provider [phone] Reason for Visit * Reason Onset Date Comments Nurse Triage 06/06/2024 Encounter Details Date Type Department Care Team ([facility] Contact Info) Description 06/06/[address] [facility] CHC MED & PEDS [address] [place] [address] Estee Wright MD [address] [place] [address] Nurse Triage Social History Tobacco Use Types Packs/Day Years [...] encounter Miscellaneous Notes * Telephone Encounter - Rizwana Tipton RN - 06/06/2024 11:40 AM EDT Called pt. She states that she had intercourse but after she had some bright red blood drips after.Pt then again had sexual intercourse on another day after sexual intercourse had some drops of bright red blood. No clots, no abdominal pain. Pt. Is concerned because she has a strong family HX of cancer. Protocol Used: Vaginal Bleeding - Postmenopausal (Adult) Protocol-Based Disposition: See in Office or Video Visit within 3 Days- appt 06/09/24 at 145pm in [facility] with Melody WARD NURSE. Positive Triage Question: * Bleeding or spotting after sexual intercourse only. * All higher-acuity triage questions were negative * Telephone Encounter - Bret Bailon - 06/06/2024 11:39 AM EDT Tc from pt returning call regarding prior message. Contact pt at [phone] * Telephone Encounter - Rizwana Tipton RN - 06/06/2024 10:37 AM EDT Called pt. No answer. Left message to please call back [facility] nurses at [phone]. Advised that [facility] is open today until 730pm and there are a few openings in [facility] but to please call back if needed. Called back x2. Left second message that if needs to be seen today that we have a few openings in [facility] so to please call back [phone]. RE: Vaginal bleeding with intercourse. * Telephone Encounter - Funmi Abraham - 06/06/2024 10:23 AM EDT Symptom: Vaginal Bleeding - Not Outcome: Schedule an appointment to be seen within 24 hours Reason: Caller denied all higher acuity questions The caller accepted this outcome. Pt reported bleeding after intercourse Contact pt at [phone] documented in this encounter Plan of Treatment Not on file documented as of this encounter Visit Diagnoses Not on filedocumented in this encounter Additional Health Concerns Assessment Noted Time PHQ-9 Depression Total Score: 0 10/01/19 24 10:07 AM EDT documented as of this encounter Care Teams Magazine Filler Relationship Specialty Start Date End Date Estee Wright MD [address] [place] [address] PCP - General Internal Medicine 05/26/18 documented as of this encounter
--- OUTSIDE RECORDS SUMMARY | 2024-06-09 18:16 | XMS_ITS | Clinical Summary ---
Author Organization [employer] Address [address] [facility] 7[address] [place] [address] Care Team Providers Care Pipeman Name Role Phone Estee Wright MD Primary Care Provider [phone] Allergies Active Allergy Reactions Criticality Noted Date Comments Peanut-Containing Drug Products 05/31 Medications SUMAtriptan (Imitrex) 25 MG tabletIndication s:Migraine [...] Encounters Date Type Department Care Team Description 06/09/2024 1:45 PM EDT Office Visit [facility] [address] [place] [address] Melody Block CNM Postcoital bleeding (Primary Dx); Family history of breast cancer 06/09/2024 Travel 06/06/2024 Telephone [facility] [address] [place] [address] Estee Wright MD Nurse Triage 04/21/2024 Telephone [facility] [address] [place] [address] Estee Wright MD Results 03/29/2024 Orders Only [facility] [address] [place] [address] Estee Wright MD from Last 3 Months Family History Medical History Relation Name Comments Ovarian cancer Maternal Grandfather Breast cancer Other Paternal Cousin Breast cancer Sister both sisters Relation Name Status Comments Maternal Grandfather Other Paternal Cousin Sister Social History Tobacco Use Types Packs/Day Years [...] the past 12 months, has t he [employer], gas, oil or water travelfox threatened to shut off services in your [...] Mass Index 34.38 06/09/2024 1:53 PM EDT Plan of Treatment Health Maintenance Due Date Last Done Comments CT Colonography 1959 FIT DNA/Cologuard 1959 FIT 1959 FOBT 1960 Sigmoidoscopy 1959 Alcohol/Substance Use Screening 1971 Pneumococcal Vaccine: 50+ Years (1 of 1 - PCV) 05/27/2009 RSV Patients and Patients Aged 60 years or older (1 - Risk 60-74 years 1-dose series) 2019 COVID-19 Vaccine ( - 2023-2 5 season) 2023 04/04/2021, 05/03/2020, 04/12/2020 Influenza Vaccine (#1) 2023 , 12/31/2018, 01/14/2014 Depression Screening 09/30/2024 10/01/2023, 10/01/2023 SDOH Screening 09/30/2024 10/01/2023 Tobacco Screening 06/09/2025 06/09/2024 Mammogram 03/29/2026 03/29/2024, 03/26/2023 Cervical Cancer Screening 09/17/2026 HPV/Cotest 09/17/2026 09/17/2021 Pap Smear 09/17/2026 09/17/2021 Colonoscopy 12/16/2027 12/15/2017 Colorectal Cancer [...] Procedure Name Priority Date/Time Associated Diagnosis Comments BI MAMMOGRAM SCREENING TOMOSYNTHESIS BILATERAL Routine 03/29/2024 10:35 AM EST LIPID PANEL, STANDARD Routine 10/02/2023 8:43 AM EDT Hypercholesterolem ia THINPREP IMAGING PAP AND HPV MRNA E6/E7 WITH REFLEX TO HPV 16,18/45 Routine 09/17/2021 10:12 AM EDT ZZZ HISTORICAL HEPATITIS C AB W/REFL TO HCV RNA, QN, PCR Routine 08/21/2021 8:46 AM EDT HM COLONOSCOPY Routine 12/15/2017 from Last 3 Months or Most Recently Relevant to Health Maintenance Results * BI Mammogram Screening Tomosynthesis Bilateral (03/29/2024 10:35 AM EST) Anatomical Region Laterality Modality Breast Bilateral Mammography 03/29/2024 10:3 5 AM EST Narrative 04/08/2024 3:53 PM EST ? [facility] ? [address] ?[place] [address] ? Mammography Report ? Signed ? Patient: Anne,Cherran P ?MR#: [id number] ?? [id number] ? : 1960 ?Acct:[id number] ? Age/Sex: 63 / F ?ADM Date: 03/29/24 ? Loc: HO.MAMMO ? Attending Dr: Estee Wright MD ? Ordering Physician: Estee Wright MD ?Results: 2 ?? Benign Findings ? Date of Service: 03/29/24 ?Follow Up: 1 Year From Orig ?? inal Mammogram ? Procedure(s): MM tomosynthesis screening BI ?? Accession Number(s): [id number] ? cc: Estee Wright MD ? EXAMINATION: ?? MM SCREENING DIGITAL BREAST TOMOSYNTHESIS, BILATERAL ? CLINICAL INFORMATION: ? Screening. Asymptomatic. ? COMPARISON: ?? Mammography: Comparison is made with available priors ? TECHNIQUE: ?? Digital breast mammography with tomosynthesis is performed in both the ?? craniocaudal and mediolateral oblique views along with computer-aided ?? detection (CAD). ? FINDINGS: ?? There are scattered areas of fibroglandular density (ACR BI-RADS breast ?? composition Category b). ?? Focal asymmetry lower inner left breast middle depth decreased in size ?? comparison to priors dating back to 2011. ?? There are no significant masses, abnormal calcifications, or other ?? abnormalities. ? MM/MM tomosynthesis screening BI ?? IMPRESSION: ?? No mammographic evidence of malignancy. ? ASSESSMENT: ? BI-RADS BI-RADS 2 - Benign Findings ? RECOMMENDATION: ?? Routine annual mammography screening. ? 1 year F/U ? This examination should not preclude the clinical evaluation of a ?? suspicious palpable abnormality. ? This patient's information was entered into a reminder system with a ?? target due date for their next mammogram. ? Electronically signed by: ??Zoey Winters DO ??04/08/2024 03:50 PM EST ? Dictated By: ?Zoey Winters DO ? Signed By: ?<Electronically signed by Zoey Winters, DO in OV> ? 04/08/24 1550 ? DD/ 1035 ? TD/TT: 03/29/24 1055 ? Shell Shop Supervisor: ? Procedure Note Janki Aleman - 04/08/2024 Krishan [facility] [address] [place] [address] Mammography Report Signed Patient: Rubin Anne PMR#: [id number] : 1960Acct:[id number] Age/Sex: 63 / FADM Date: 03/29/24 Loc: HO.MAMMO Attending Dr: Estee Wright MD Ordering Physician: Estee Wright MDResults: 2 Benign Findings Date of Service: 03/29/24Follow Up: 1 Year From Orig inal Mammogram Procedure(s): MM tomosynthesis screening BI Accession Number(s): [id number] cc: Estee Wright MD EXAMINATION: MM SCREENING DIGITAL BREAST TOMOSYNTHESIS, BILATERAL CLINICAL INFORMATION: Screening. Asymptomatic. COMPARISON: Mammography: Comparison is made with available priors TECHNIQUE: Digital breast mammography with tomosynthesis is performed in both the craniocaudal and mediolateral oblique views along with computer-aided detection (CAD). FINDINGS: There are scattered areas of fibroglandular density (ACR BI-RADS breast composition Category b). Focal asymmetry lower inner left breast middle depth decreased in size comparison to priors dating back to 2011. There are no significant masses, abnormal calcifications, or other abnormalities. MM/MM tomosynthesis screening BI IMPRESSION: No mammographic evidence of malignancy. ASSESSMENT: BI-RADS BI-RADS 2 - Benign Findings RECOMMENDATION: Routine annual mammography screening. 1 year F/U This examination should not preclude the clinical evaluation of a suspicious palpable abnormality. This patient's information was entered into a reminder system with a target due date for their next mammogram. Electronically signed by: Zoey Winters DO 04/08/2024 03:50 PM EST Dictated By: Zoey Winters DO Signed By: <Electronically signed by Zoey Winters DO in OV> 04/08/24 1550 DD/ 1035 TD/TT: 03/29/24 1055 Shell Shop Supervisor: us Estee Wright MD IMG BI PROCEDURES Final Res ult * (ABNORMAL) Lipid Panel, Standard (10/02/2023 8:43 AM EDT) Triglycerides 273(H) <150 mg/dL [facility] Comment:Desirable Triglyceri de: less than 150 mg/dLBorderline High Triglyceride 150-199 mg/dLHigh Triglyceride: 200-499 mg/dLVery High Triglyceride: greater than or equal to 5OO mg/dL Cholesterol 242(H) <200 mg/dL [facility] Comment:Desirable Cholestero l: less than 200 mg/dLBorderline High Cholesterol: 200-239 mg/dLHigh Cholesterol: greater than 239 mg/dL LDL Cholesterol Calculated 138(H) <100 mg/dL [facility] Comment:Desirable LDL: less than 100 mg/dLNear Optimal/Above Optimal LDL: 110- 129 mg/dLBorderline High LDL: 130-159 mg/dLHigh LDL: 160-189 mg/dLVery High LDL: greater than or equal to 190 mg/dL HDL Cholesterol 50 >40 mg/dL [facility] Comment:Desirable HDL: great er than 40 mg/dL Note: This HDL assay may give artificially low results in patients with liver disease. Blood Venous blood specimen / Unknown 10/02/2023 8:43 AM EDT 10/02/2023 1:49 PM EDT us Estee Wright MD LAB BLOOD ORDERABLES Final Result [facility] [address] [place] [phone] * THINPREP TIS PAP AND HPV mRNA E6/E7 WITH REFLEX TO HPV 16,18/45 (09/17/2021 10:12 AM EDT) Clinical Information: None given [facility] COMMENT SEE COMMENT [facility] [...] has been evaluated with computer assisted technology. [email or web address]) SYSTEM Cytotechnologis t: SEE COMMENT [facility] Comment: CXP, CT(ASCP) CT screening location: [address] ??[address] HPV nRNA E6/E7 Not Detected Not Detected [employer] [email or web address] SYSTEM Comment: Methodology: Pack Room Operator-Mediated Amplification This assay detects E6/E7 viral messenger RNA (mRNA) from 14 high-risk HPV types (16,18,31,33,35,39,45,51,52,56,58,59,66,68). ? Cervical sources are required for HPV testing. If a vaginal source from a patient who has had a total hysterectomy with removal of cervix was ?? submitted, please contact the testing laboratory for alternative testing options. ?? For additional information, please refer to http://education.[employer]faq/ZGX044n0 (This link if provided for information/ educational purposes only.) Interpretation/ Result: Negative for intraepithelial lesion or malignancy. [employer] [email or web address] SYSTEM LMP: MP@51 [facility] Prev. BX: NONE GIVEN [facility] Prev. PAP: NONE GIVEN [facility] SOURCE: None given [facility] Statement Of Adequacy: SEE COMMENT [facility] Comment: Satisfactory for evaluation. Endocervical/transformation zone component absent. 09/17/2021 10:1 2 AM EDT Melody Block CNM LAB PATHOLOGY ORDERABLES Final Result Performing Organization Address [facility] Co de Phone Number [facility] [address] [place] [address], * HEPATITIS C AB W/REFL TO HCV RNA, QN, PCR (08/21/2021 8:46 AM EDT) HEPATITIS C ANTIBODY NON-REACT XIN NON-REACT XIN [facility] INDEX 0.02 <1.00 [facility] Comment: ?? HCV antibody was non-reactive. There is no laboratory ?? evidence of HCV infection. ?? In most cases, no further action is required. However, if recent HCV exposure is suspected, a test for HCV RNA (test code 51185) is suggested. ?? For additional information please refer to http://education.[employer]faq/VRK56u8 (This link is being provided for informational/ educational purposes only.) ?? 08/21/2021 8:46 AM EDT Estee Wright MD HISTORICAL/NON ORDERABLE LA BS Final Result Performing Organization Address [facility] Co de Phone Number [facility] [address] [place] [address], [place] * Hm Colonoscopy (12/15/2017) Colonoscopy Normal Normal Narrative Lisa Cervantes - 12/15/2017 Recommended 10 year follow up Historical Provider HEALTH MAINTENANCE Final Result from Last 3 Months or Most Recently Relevant to Health Maintenance Care Teams Pipeman Relationship Specialty Start Date End Date Estee Wright MD [address] [place] [id number] PCP - General Internal Medicine 05/26/18
--- OUTSIDE RECORDS SUMMARY | 2024-06-09 18:16 | XMS_ITS | Encounter Summary ---
Author Organization [employer] Address [address] [facility] 7 [place] [address] Care Team Providers Care Lift Manager Name Role Phone Estee Wright MD Primary Care Provider [phone] Encounter Details Date Type Department Care Team (Late st Contact Info) Description 01/01/2023 Abstract [facility] [address] [place] [address] Lisa Cervantes Social History Tobacco Use Types [...] on filedocumented in this encounter Care Teams Lift Manager Relationship Specialty Start Date End Date Estee Wright MD [address] [place], [place] [phone] PCP - General Internal Medicine 05/26/18 documented as of this encounter
[2024-06-11 23:03] LABS: C. trachomatis RNA TMA NOT DETECTED (NOT DETECTED); N. gonorrhoeae RNA TMA NOT DETECTED (NOT DETECTED)
[2024-06-12 11:24] LABS: Trichomonas (NAAT) NOT DETECTED (NOT DETECTED)
[2024-06-14 14:19] LABS: HPV Genotype 16 Negative (Negative); HPV Genotype 18 Negative (Negative); HPV High Risk Positive (Negative)
== END 2024-06-09 17:37 | disposition home or self-care (01) ==
LOC: HO.HHCLNP 17:36
PROVIDERS: Visit Provider Advanced Practice Midwife
DX: N93.0 Postcoital and contact bleeding (principal)
CPT/HCPCS: 87491; 87591; 87626; 87661; 88175

== ENCOUNTER 2024-08-12 13:10 | Outpatient (REF) | payer MEDICARE, SELFPAY ==
--- NOTE | ~2024-08-12 | US_ITS ---
EXAMINATION: US PELVIS TRANSABDOMINAL AND TRANSVAGINAL HISTORY: PMB COMPARISON: There are no prior studies available for comparison. TECHNIQUE: Transabdominal and endovaginal real-time 2D rivera-scale ultrasound was performed. FINDINGS: Uterus: The uterus is normal in size, measuring 1.3 x 3.3 x 4.2 cm. Myometrium has a normal echotexture. No fibroids are identified. Endometrium: The endometrial stripe measures 3 mm in thickness. There is an echogenic linear structure in the cervix causing shadowing. Right ovary: The right ovary measures 2.6 x 1.1 x 1.6 cm. The right ovary is normal in size and echotexture. Left ovary: The left ovary measures 2.4 x 1.4 x 1.7 cm. The left ovary is normal in size and echotexture. Pelvic fluid: none. US/US pelvic and transvaginal IMPRESSION: Echogenic linear structure in the cervix of uncertain etiology or significance. A foreign body could have this appearance. Direct visualization is recommended. Electronically signed by: Kaushal Brown MD 08/12/2024 02:39 PM EDT
--- OUTSIDE RECORDS SUMMARY | 2024-08-12 13:36 | XMS_ITS | Encounter Summary ---
Author Organization [employer] Address [address] [facility] 7t [place] [address] Care Team Providers Care Home Supervisor Name Role Phone Estee Wright MD Primary Care Provider [phone] Encounter Details Date Type Department Care Team ([facility] st Contact Info) Description 08/10/2024 Telephone [facility] [address] [place] [address] Melody Block CNM [address] [place] [address] Social History Tobacco Use Types Packs/Day Years [...] encounter Miscellaneous Notes * Telephone Encounter - Malaika Guevara [place] - 08/10/2024 9:53 AM EDT T/c to pt to asked if she got her health insurance back and to see if she got her pelvic ultrasounddone also to let her know that we can help with health insurance at the clinic here no answer lvm. documented in this encounter Plan of Treatment Not on file documented as of this encounter Visit Diagnoses Not on filedocumented in this encounter Additional Health Concerns Assessment Noted Time PHQ-9 Depression Total Score: 0 10/01/19 24 10:07 AM EDT documented as of this encounter Care Teams Home Supervisor Relationship Specialty Start Date End Date Estee Wright MD [address] [place] [address] [place] [address] PCP - General Internal Medicine 05/26/18 documented as of this encounter
== END 2024-08-12 13:11 | disposition home or self-care (01) ==
LOC: HO.US 13:10
PROVIDERS: PCP Internal Medicine; Visit Provider Advanced Practice Midwife
DX: N93.0 Postcoital and contact bleeding (principal)
CPT/HCPCS: 76830; 76856

== ENCOUNTER → 2024-08-12 13:18 | Outpatient (BNV) | payer MEDICARE, SELFPAY | PROVIDERS: PCP Internal Medicine; Visit Provider Radiology Diagnostic Radiology | DX: N95.0 Postmenopausal bleeding (principal) | CPT/HCPCS: 76830; 76856 ==

== ENCOUNTER 2024-10-25 10:48 | Outpatient (REF) | payer MEDICARE, SELFPAY ==
--- NOTE | ~2024-10-25 | US_ITS ---
CLINICAL HISTORY: f u 2024 pelvic exam Ultrasound of the female pelvis Comparison: US/SR - US PELVIS TRANSABDOMINAL AND TRANSVAGINAL - 08/12/24 14:01 EDT Technique: Grayscale ultrasound with assistance of color Doppler. Transabdominal scanning performed for overall anatomy. Transvaginal scanning performed for better anatomic delineation. Findings: The uterus is anteverted transabdominally, switched from anteverted to retroverted during transvaginal exam, measures 8.5 x 3.6 x 3.3 cm, mildly heterogeneous myometrium, no fibroid is visualized. The endometrium appears normal, 4 mm in thickness, no focal lesion is seen. Abnormal cervix, scattered punctate and linear shadowing echogenicities in the central portion of the cervix, same as before, subcentimeter nabothian cyst noted. Right ovary is only seen transabdominally, grossly normal, 2.3 x 1.0 x 2.4 cm, no sonographically suspicious lesion or abnormal vascular flow. Left ovary is not seen, no left adnexal mass. No free fluid. Impression: 1. Persistent shadowing punctate and linear hyperechogenicities in the central cervix, may reflect calcification related to prior infectious/inflammatory process or procedure or foreign body, please correlate clinically. 2. Nonvisualization of the left ovary, no left adnexal mass is seen. This document has been electronically signed by: Desiree Jones MD on 10/25/2024 16:22:17
--- OUTSIDE RECORDS SUMMARY | 2024-10-25 11:40 | XMS_ITS | Encounter Summary ---
Author Organization [employer] Address [address] [facility] 7 [place] [address] Care Team Providers Care Buyer Renter Name Role Phone Estee Wright MD Primary Care Provider [phone] Reason for Visit * Reason Onset Date Comments Results 04/21/2024 Encounter Details Date Type Department Care Team ([facility] Contact Info) Description 04/21/2024 Telephone [facility] [address] [place] [address] Estee Wright MD [address] [place], [place] [phone] Results Social History Tobacco Use Types Packs/Day [...] Female 12/30/2021 10:20 AM EDT Sexual Orientation Straight 10/18/2024 12 :37 PM EDT documented as of this encounter Miscellaneous [...] Mammogram Date when done: Around 03/29/24 Facility: [facility] [place] Contact pt at [phone] documented in this encounter Plan of Treatment Not on file documented as of this encounter Visit Diagnoses Not on filedocumented in this encounter Additional Health Concerns Assessment Noted Time PHQ-9 Depression Total Score: 0 10/01/19 10:07 AM EDT documented as of this encounter Care Teams Buyer Renter Relationship Specialty Start Date End Date Estee Wright MD [address] [place] [address] [place] [address] PCP - General Internal Medicine 05/26/18 documented as of this encounter
--- OUTSIDE RECORDS SUMMARY | 2024-10-25 11:40 | XMS_ITS | Clinical Summary ---
Author Organization [employer] Address [address] [facility] 7t [place] [address] Care Team Providers Care Business Info Consultant Name Role Phone Estee Wright MD Primary Care Provider [phone] Allergies Active Allergy Reactions Criticality Noted Date Comments Peanut-Containing Drug Products 05/31 Medications atorvastatin (Lipitor) 20 MG tabletIndication s:Hypercholester olemia Take 1 tablet (20 mg) by mouth Once per day. 30 tablet 11 10/05/2023 Active topiramate (Topamax) 50 MG tablet Take 50 mg by mouth Once per day. 30 tablet 12/22/2023 Active SUMAtriptan (Imitrex) 25 MG tabletIndication s:Migraine with aura and without status migrainosus, not intractable TAKE ONE TABLET BY MOUTH NEEDED FOR MIGRAINE. NO MORE THAN EIGHT TABLETS PER 24 HOURS 9 tablet 2 08/19/2024 Active Active Problems Problem Noted Date Diagnosed Date Migraine 10/01/2023 Positive PPD 10/01/2023 Hypercholesterolemia 08/22/2021 Encounters Date Type Department Care Team Description 10/18/2024 10:30 AM EDT Procedure Visit [facility] [address] [place] [address] Ro Navas CNM Abnormal pelvic ultrasound (Primary Dx); Family history of breast cancer; Atrophic vaginitis 10/18/2024 Travel 08/19/2024 Refill [facility] [address] [place] [address] Estee Wright MD Migraine with aura and without status migrainosus, not intractable 08/16/2024 Travel 08/15/2024 Results Follow-Up [facility] [address] [place] [address] Ro Navas CNM US Pelvis Transvaginal 08/10/2024 Telephone [facility] [address] [place] [address] Ro Navas CNM from Last 3 Months Family History Medical History Relation Name Comments Ovarian cancer Maternal Grandmother Breast cancer Other Paternal Cousin Breast cancer Sister both sisters Relation Name Status Comments Maternal Grandfather Maternal Grandmother Other Paternal Cousin Sister Social History Tobacco [...] Orientation Straight 10/18/2024 12 :37 PM EDT Last Filed Vital Signs Vital Sign Reading Time Taken Comments Blood Pressure 130/90 10/18/2024 10:27 AM EDT Pulse 68 10/18/2024 10:27 AM EDT Temperature 36.8 C (98.2 F) 10/18/2024 10:27 AM EDT Respiratory Rate 20 10/18/2024 10:27 AM EDT Oxygen Saturation 98% 10/18/2024 10:27 AM EDT Inhaled Oxygen Concentration - - Weight 96 kg (211 lb 9.6 oz) 10/18/2024 10:27 AM EDT Height 165.1 cm (5' 5 ) 10/18/2024 10:27 AM EDT Body Mass Index 35.21 10/18/2024 10:27 AM EDT Plan of Treatment Health Maintenance [...] 2023-2 5 season) 2023 04/04/2021, 05/03/2020, 04/12/2020 Depression Screening 09/30/2024 10/01/2023, 10/01/2023 SDOH Screening 09/30/2024 10/01/2023 Influenza Vaccine (#1) 2024 , 12/31/2018, 01/14/2014 Cervical Cancer Screening 06/09/2025 HPV/Cotest 06/09/2025 06/09/2024, 09/17/2021 Pap Smear 06/09/2025 06/09/2024, 09/17/2021 Tobacco Screening 10/18/2025 10/18/2024 Mammogram 03/29/2026 03/29/2024, 03/26/2023 Colonoscopy 12/16/2027 12/15/2017 Colorectal Cancer Screening 12/16/2027 DTaP/Tdap/Td Vaccines (4 - T d or [...] patient's age to complete this topic Meningococcal B Vaccine Aged Out No l onger eligible based on patient's age to complete [...] Procedure Name Priority Date/Time Associated Diagnosis Comments US PELVIS TRANSVAGINAL Urgent 2:05 PM EDT Postcoital bleeding HPV DNA, LOW/HIGH RISK Routine 12:00 AM EDT PAP SMEAR Routine 06/09/2024 12:00 AM EDT Postcoital bleeding BI MAMMOGRAM SCREENING TOMOSYNTHESIS BILATERAL Routine 03/29/2024 10:35 AM EST ZZZ HISTORICAL HEPATITIS C AB W/REFL TO HCV RNA, QN, PCR Routine 08/21/2021 8:46 AM EDT HM COLONOSCOPY Routine 12/15/2017 from Last 3 Months or Most Recently Relevant to Health Maintenance Results * US Pelvis Transvaginal (08/12/2024 2:05 PM EDT) Anatomical Region Laterality Modality Pelvis Ultrasound 08/12/2024 2:05 PM EDT Narrative 08/12/2024 2:42 PM EDT [address] [address] Ultrasound Report Signed Patient: Rubin Anne MR#: [id number] : 1960 Acct:[id number] Age/Sex: 64 / F ADM Date: 08/12/24 Loc: HO.US Attending Dr: Ro Navas CNM Ordering Physician: RO NAVAS CNM Date of Service: 08/12/24 Procedure(s): US pelvic and transvaginal Accession Number(s): [id number] cc: Estee Wright MD; RO NAVAS CNM EXAMINATION: US PELVIS TRANSABDOMINAL AND TRANSVAGINAL HISTORY: PMB COMPARISON: There are no prior studies available for comparison. TECHNIQUE: Transabdominal and endovaginal real-time 2D rivera-scale ultrasound was performed. FINDINGS: Uterus: The uterus is normal in size, measuring 1.3 x 3.3 x 4.2 cm. Myometrium has a normal echotexture. No fibroids are identified. Endometrium: The endometrial stripe measures 3 mm in thickness. There is an echogenic linear structure in the cervix causing shadowing. Right ovary: The right ovary measures 2.6 x 1.1 x 1.6 cm. The right ovary is normal in size and echotexture. Left ovary: The left ovary measures 2.4 x 1.4 x 1.7 cm. The left ovary is normal in size and echotexture. Pelvic fluid: none. US/US pelvic and transvaginal IMPRESSION: Echogenic linear structure in the cervix of uncertain etiology or significance. A foreign body could have this appearance. Direct visualization is recommended. Electronically signed by: Kaushal Brown MD 08/12/2024 02:39 PM EDT Dictated By: Kaushal Brown MD Signed By: <Electronically signed by Kaushal Brown MD in OV> 08/12/24 1439 DD/ 1405 TD/TT: 08/12/24 1417 Production Inspector: Procedure Note Dondavidcoleenlourdester, Image - 08/12/2024 [place] [address] Ultrasound Report Signed Patient: Rubin Anne PMR#: [id number] : 1960Acct:[id number] Age/Sex: 64 / FADM Date: 08/12/24 Loc: HO.US Attending Dr: Ro Navas CNM Ordering Physician: RO NAVAS CNM Date of Service: 08/12/24 Procedure(s): US pelvic and transvaginal Accession Number(s): [id number] cc: Estee Wright MD; RO NAVAS CNM EXAMINATION: US PELVIS TRANSABDOMINAL AND TRANSVAGINAL HISTORY: PMB COMPARISON: There are no prior studies available for comparison. TECHNIQUE: Transabdominal and endovaginal real-time 2D rivera-scale ultrasound was performed. FINDINGS: Uterus: The uterus is normal in size, measuring 1.3 x 3.3 x 4.2 cm. Myometrium has a normal echotexture. No fibroids are identified. Endometrium: The endometrial stripe measures 3 mm in thickness. There is an echogenic linear structure in the cervix causing shadowing. Right ovary: The right ovary measures 2.6 x 1.1 x 1.6 cm. The right ovary is normal in size and echotexture. Left ovary: The left ovary measures 2.4 x 1.4 x 1.7 cm. The left ovary is normal in size and echotexture. Pelvic fluid: none. US/US pelvic and transvaginal IMPRESSION: Echogenic linear structure in the cervix of uncertain etiology or significance. A foreign body could have this appearance. Direct visualization is recommended. Electronically signed by: Kaushal Brown MD 08/12/2024 02:39 PM EDT RP Dictated By: Kaushal Brown MD Signed By: <Electronically signed by Kaushal Brown MD in OV> 08/12/24 1439 DD/ 1405 TD/TT: 08/12/24 1417 Production Inspector: Ro Navas CNM IMG US PROCEDURES Final R esult * (ABNORMAL) HPV DNA, Low/High Risk (06/09/2024 12:00 AM EDT) HPV High Risk Positive(A) Negative [facility] HPV Genotype 16 Negative Negative [facility] HPV Genotype 18 Negative Negative [facility] Comment:HPV testing performe d at [facility] (CLIA#[id number]), [address] [place] [address].Testing for HPV was performed using the [employer]. The presence of HPV in the female genital tract isassociated with a number of diseases, including cervicalcarcinoma. The HPV DNA high risk pool tests for HPV 31, 33,35, 39, 45, 51, 52, 56, 58, 59, 66 and 68. The testing forHPV 16 and 18 genotypes has also been performed. A positiveresult indicates detection of nucleic acid sequences fromone or more subtypes, whereas a negative result indicatessuch sequences were not detected. 06/09/2024 06/10/2024 6:0 4 AM EDT Narrative [facility] - 06/14/2024 2:19 PM EDT Collection Date: [id number] by: MILDRED Maguire: Cervix Ro Navas CNM LAB BLOOD ORDERABLES Maritza l Result [facility] [address] [place] [phone] * Pap Smear (06/09/2024 12:00 AM EDT) Swab Cervix uteri structure / Unknown 06/09/2024 06/10/2024 6:04 AM EDT Narrative [facility] - 06/14/2024 10:53 AM EDT ----- ------- Name: Rubin Anne Age/Sex: 64/F : 1960 Unit#: [id number] Attend Dr: RO NAVAS CNM Re06/09/24 Status: DEP REF [facility] Disch: ----- ------- SPEC : [id number] RECD: 06/10/24 STATUS: ONDINA ROSA NUM: [id number] ADRYAN: 06/09/24-[address]: RO NAVAS CNM ENTERED: 06/10/24 SP TYPE: Pap Smr OTHR DR: ORDERED: Pap Smear Interpretation Satisfactory for evaluation. Negative for intraepithelial lesion or malignancy. HPV High Risk: Positive HPV Genotyping 16: Negative HPV Genotyping 18: Negative Clinical Information LMP:Post Menopausal Previous PAP test: Material Received ThinPrep-Cervical ----- ------- Signed (signature on file) KATIE Rizvi ([facility]) 06/14/24 1053 ----- ------- END OF REPORT us [facility] CYTOLOGY ORDERABLES F inal Result [facility] [address] [place] [phone] * BI Mammogram Screening Tomosynthesis Bilateral (03/29/2024 10:35 AM EST) Anatomical Region Laterality Modality Breast Bilateral Mammography 03/29/2024 10:3 5 AM EST Narrative 04/08/2024 3:53 PM EST [facility] [address] [place] [address] Mammography Report Signed Patient: Rubin Anne MR#: [id number] : 1960 Acct:[id number] Age/Sex: 63 / F ADM Date: 03/29/24 Loc: MAMMO Attending Dr: Estee Wright MD Ordering Physician: Estee Wright MD Results: 2 Benign Findings Date of Service: 03/29/24 Follow Up: 1 Year From Orig inal Mammogram Procedure(s): MM tomosynthesis screening BI Accession Number(s): [id number] cc: Estee Wright MD EXAMINATION: MM SCREENING [...] 04/08/24 1550 DD/ 1035 TD/TT: 03/29/24 1055 Production Inspector: Procedure Note Donotuseinterpreter, Image - 04/08/2024 [facility] [address] [place] [address] Mammography Report Signed Patient: Rubin Anne PMR#: [id number] : 1960Acct:[id number] Age/Sex: 63 / FADM Date: 03/29/24 Loc: HO.MAMMO Attending Dr: Estee Wright MD Ordering Physician: Estee Wright MDResults: 2 Benign Findings Date of Service: 03/29/24Follow Up: 1 Year From [facility] Mammogram Procedure(s): MM tomosynthesis screening BI Accession Number(s): [id number] cc: Estee Wright MD EXAMINATION: MM SCREENING [...] by: Zoey Winters DO 04/08/2024 03:50 PM [facility] Dictated By: Zoey Winters DO Signed By: <Electronically signed by Zoey Winters DO in OV> 04/08/24 1550 DD/ 1035 TD/TT: 03/29/24 1055 Production Inspector: Estee Wright MD IMG BI PROCEDURES Final Res ult * HEPATITIS C AB W/REFL TO HCV RNA, QN, PCR (08/21/2021 8:46 AM EDT) HEPATITIS C ANTIBODY NON-REACT XIN NON-REACT XIN [facility] INDEX 0.02 <1.00 [facility] Comment: HCV antibody was non-reactive. There is no laboratory evidence of HCV infection. In most cases, no further action is required. However, if recent HCV exposure is suspected, a test for HCV RNA (test code 26484) is suggested. For additional information please refer to http://education.[employer].Gamemaster/faq/AYB21i1 (This link is being provided for informational/ educational purposes only.) 08/21/2021 8:46 AM EDT us Estee Wright MD HISTORICAL/NON ORDERABLE LA BS Final Result [facility] [address] [place] [address], [place] * Hm Colonoscopy (12/15/2017) Colonoscopy Normal Normal Narrative Lisa Cervantes - 12/15/2017 Recommended 10 year follow up us Historical Provider HEALTH MAINTENANCE Final Result from Last 3 Months or Most Recently Relevant to Health Maintenance Insurance [employer] MEDICARE REPLACEMENT Care Teams Business Info Consultant Relationship Specialty Start Date End Date Estee Wright MD [address] [place] [address] PCP - General Internal Medicine 05/26/18
--- OUTSIDE RECORDS SUMMARY | 2024-10-25 11:40 | XMS_ITS | Encounter Summary ---
Author Organization [employer] Address [address] [facility] 7t [place] [address] Care Team Providers Care Career And Guidance Counselor Name Role Phone Estee Wright MD Primary Care Provider [phone] Encounter Details Date Type Department Care Team ([facility] st Contact Info) Description 08/18/2023 Orders Only [facility] [address] [place], [place] [phone] Estee Wright MD [address] [place], [place] [phone] Migraine with aura and without status migrainosus, [...] PM EDT documented as of this encounter Plan of Treatment Not on file documented as of this encounter Visit Diagnoses Diagnosis Migraine with aura and without status migrainosus, not intractable- Primary documented in this encounter Care Teams Career And Guidance Counselor Relationship Specialty Start Date End Date Estee Wright MD [address] [place] [address] PCP - General Internal Medicine 05/26/18 documented as of this encounter
--- OUTSIDE RECORDS SUMMARY | 2024-10-25 11:40 | XMS_ITS | Encounter Summary ---
Author Organization [employer] Address [address] [place] [address] [address] [place] [address] Care Team Providers Care Program Management Specialist Name Role Phone Estee Wright MD Primary Care Provider [phone] Reason for Referral * Imaging (Routine) - Closed Specialty Diagnoses / Procedures Referred By Dar t Referred To Contact Radiology Diagnoses Encounter for screening mammogram for malignant neoplasm of breast Procedures BI Mammogram Screening Bilateral Estee Wright MD [address] [place] [address] Phone: tel: fax: [address] Phone: tel: fax: Referral ID Status Reason Start Date Expiration Date Visits Re quested Visits Authorized [id number] Closed 02/18/2023 02/18/2024 1 1 Reason for Visit * Reason Onset Date Comments Referral 02/17/2023 Encounter Details Date Type Department Care Team ([facility] st Contact Info) Description 02/17/2023 Telephone [facility] [address] [place], [place] [phone] Estee Wright MD [address] [place] [address] Referral Social History Tobacco Use Types Packs/Day [...] message below. Pt [facility] [place] [facility] [place] they do not take pt's insurance anymore. Pt requesting new order to a different location that does take pt insurance. Placed call to [facility] and confirmed they do take pt insurance. Please add order for routine mammo to be sent to [facility]. Thank you. * Telephone Encounter - Lorena Latham - 02/17/2023 12:55 PM EST Tc from pt requesting a referral for a Mammogram, pt states that she gets one done every year but current facility no longer takes her insurance and is requesting to be referred out somewhere that does. Please contact pt [phone] documented in this encounter Plan of Treatment Scheduled Orders Name Type Priority Associated Diagnoses Orde r Schedule BI Mammogram Screening Bilateral Imaging Routine Encounter for screening mammogram for malignant neoplasm of breast Expected: 02/18/2023, Expires: 04/21/2024 documented as of this encounter Visit Diagnoses Diagnosis Encounter for screening mammogram for malignant neoplasm of breast- Primary documented in this encounter Care Teams Program Management Specialist Relationship Specialty Start Date End Date Estee Wright MD [address] [place] [address] PCP - General Internal Medicine 05/26/18 documented as of this encounter
--- OUTSIDE RECORDS SUMMARY | 2024-10-25 11:40 | XMS_ITS | Encounter Summary ---
Author Organization [employer] Address [address] [facility] 7t [place] [address] Care Team Providers Care Credit Administration Manager Name Role Phone Estee Wright MD Primary Care Provider [phone] Encounter Details Date Type Department Care Team (Latest Contact Info) Description 07/15/2018 Abstract [facility] CONVERSIONS Dental, Provider, DDS Social History [...] on filedocumented in this encounter Care Teams Credit Administration Manager Relationship Specialty Start Date End Date Estee Wright MD [address] [place] [address] PCP - General Internal Medicine 05/26/18 documented as of this encounter
--- OUTSIDE RECORDS SUMMARY | 2024-10-25 11:40 | XMS_ITS | Encounter Summary ---
Author Organization [employer] Address [address] [facility] [address]t [place] [address] Care Team Providers Care Pattern Worker Name Role Phone Estee Wright MD Primary Care Provider [phone] Encounter Details Date Type Department Care Team (Latest Contact Info) Description 10/05/2023 Orders Only [facility] CH[facility] MED & PEDS [address] [place] [address] Estee Wright MD [address] [place] [address] Hypercholesterolemia (Primary Dx) Social History Tobacco Use [...] documented as of this encounter Care Teams Pattern Worker Relationship Specialty Start Date End Date Estee Wright MD [address] [place] [id number] PCP - General Internal Medicine 05/26/18 documented as of this encounter
--- OUTSIDE RECORDS SUMMARY | 2024-10-25 11:40 | XMS_ITS | Encounter Summary ---
Author Organization [employer] Address [address] [facility] [address] [place] [address] Care Team Providers Care Tick Eradicator Name Role Phone Estee Wright MD Primary Care Provider [phone] Encounter Details Date Type Department Care Team ([facility] st Contact Info) Description 01/01/2023 Abstract [facility] MEDICINE [address] [place], [place] [phone] Lisa Cervantes Social History Tobacco Use Types [...] on filedocumented in this encounter Care Teams Tick Eradicator Relationship Specialty Start Date End Date Estee Wright MD [address] [place] [address] PCP - General Internal Medicine 05/26/18 documented as of this encounter
== END 2024-10-25 10:49 | disposition home or self-care (01) ==
LOC: HO.HMGCX 10:48
PROVIDERS: PCP Internal Medicine; Visit Provider Advanced Practice Midwife
DX: R93.89 Abnormal findings on diagnostic imaging of other specified body structures (principal)
CPT/HCPCS: 76830; 76856

== ENCOUNTER → 2024-10-25 10:53 | Outpatient (BNV) | payer MEDICARE, SELFPAY | PROVIDERS: PCP Internal Medicine; Visit Provider Radiology Diagnostic Radiology | DX: R93.89 Abnormal findings on diagnostic imaging of other specified body structures (principal) | CPT/HCPCS: 76830; 76856 ==